=== PATIENT | male | born 1980 | race Caucasian/White ===

== ENCOUNTER 2017-11-05 08:46 | Day surgery (SDC) | payer BC, OTHER ==
[2017-10-29 18:13] VITALS: BMI 33.6
[~2017-11-05 08:46] MED LIST: BUPIVACAINE HCL/PF 0.25% (2.5MG/ML) 10 ML VIAL IJ ONE
[2017-11-05] MEDS ORDERED: BUPIVACAINE HCL/PF 2.5 MG/ML - 30 ML VIAL IJ ONE (10:07)
[2017-11-05] MEDS ORDERED: LIDOCAINE HCL/PF 2% SDV 5ML VIAL ONE (10:08)
[2017-11-05] MEDS ORDERED: SUCCINYLCHOLINE CHLORIDE 200 MG/10 ML VIAL ONE (10:08)
[2017-11-05] MEDS ORDERED: PROPOFOL 20 ML ONE (10:08)
[2017-11-05] MEDS ORDERED: BUPIVACAINE HCL/PF 0.25% (2.5MG/ML) 10 ML VIAL IJ ONE (11:58)
[2017-11-05] MEDS ORDERED: ONDANSETRON 4 MG/2 ML VIAL ONE (12:08)
[2017-11-05 13:21] VITALS: TEMP 97.7
[2017-11-05 13:55] VITALS: BP 118/79; PULSE 77
--- NOTE | 2017-11-06 07:14 | OP ---
DATE OF OPERATION: 11/05/2017 SITE: [facility]. SURGEON: Linden Andrews MD ASSISSTANT: BALDO Do PREOPERATIVE DIAGNOSIS: 1. Left knee medial and lateral meniscal tears. 2. Left knee cartilage injury. 3. Left knee synovitis. POSTOPERATIVE DIAGNOSIS: 1. Left knee medial and lateral meniscal tears. 2. Left knee cartilage injury. 3. Left knee synovitis. PROCEDURE: 1. Left knee arthroscopy with partial meniscectomies of medial and lateral meniscus. CPT code 86144. 2. Left knee arthroscopy with chondroplasty and abrasion-plasty. CPT code 2979, 3. Left knee arthroscopy with synovectomy including removal of medial plica. CPT code 2975. FINDINGS: 1. Medial meniscus body and horn tear. 2. Lateral meniscus posterior horn tear. 3. Synovitis, patellofemoral and medial lateral notch area. 4. Large medial plica with adhesions to medial patellofemoral trochlea. 5. Antegrade 1-2 injury, medial tibial plateau. 6. ACL and PCL intact. 7. Minimal cartilage changes, lateral joint line. 8. Minor grade 2 cartilage injury, central portion of patellofemoral trochlea and central patella, with area grade 4 changes at site of plica adhesion, anterior medial patellofemoral trochlea. DESCRIPTION OF PROCEDURE: Informed consent was obtained. The patient came to the operating room, where the lower extremity was prepped and draped in a sterile fashion. A tourniquet was placed on the upper thigh, but not inflated. Using standard arthroscopic technique, a lateral incision and portal was made to allow for introduction of the camera into the suprapatellar bursa. This was then taken to the medial joint line, where under direct visualization, a medial incision and portal was made. Excessive synovium noted in the medial, lateral and patellofemoral and notch area was removed by an upbiter, shaver and Bovie cautery. This was found to bring in inflammatory tissue into the joint surface, a source of pain and dysfunction. Probing of the medial and lateral meniscus found tears, as described in the findings. These were removed with the upbiter and shaver and taken back to a stable rim. Grade 2 to 3 degenerative changes were treated with a chondroplasty, removing all flaking surfaces with low-setting Bovie along the periphery to prevent further flaking. Grade 4 changes, as noted, were treated with an abrasoplasty, creating a bleeding surface at the bone/cartilage interface. Aggressive debridement with shaver/rafael created bleeding surface. Mirco fracture also done when indicated in findings. All areas of the knee were once again reexamined. The knee was then drained and a single suture was placed in all portals. A sterile dressing was placed and the patient was transferred to the recovery room without complication. LINDEN ANDREWS M.D. MARIA [id number]
--- NOTE | 2017-11-08 16:53 | PATH ---
Surgical Pathology Report Patient Name: STEPHANIE CORTES Med. Rec. #: [id number] /Age/Gender: 1980 (Age: 36) / M Account: [id number] Location: ON LICENSE OF [facility] Taken: 11/05/2017 Received: 11/05/2017 Reported: 11/08/2017 Physicians: Linden Buckley M.D. Specimen(s) Received LEFT KNEE SHAVINGS Clinical History Unilateral primary osteoarthritis left knee Final Diagnosis KNEE SHAVINGS, LEFT, ARTHROSCOPY: FRAGMENTS OF DENSE FIBROCONNECTIVE TISSUE, ADIPOSE TISSUE, AND REACTIVE SYNOVIUM. Electronically Signed Galina Rondon M.D. Gross Description Received in formalin, labeled "left knee shavings," is a 3.5 x 3.0 x 0.4 cm. aggregate of alston-yellow soft tissue fragments. A international account representative portion is submitted in one cassette. /11/05/2017 saudi11/05/2017
== END 2017-11-05 14:00 | disposition home or self-care (01) ==
LOC: FASU 08:46
PROVIDERS: ATTEND Orthopaedic Surgery
PROC: 0SBD4ZZ Excision of Left Knee Joint, Percutaneous Endoscopic Approach (ICD-10-PCS; 2017-11-05)
PROC: 0SBD4ZZ Excision of Left Knee Joint, Percutaneous Endoscopic Approach (ICD-10-PCS; 2017-11-05)
PROC: 0SBD4ZZ Excision of Left Knee Joint, Percutaneous Endoscopic Approach (ICD-10-PCS; principal; 2017-11-05 10:30)
DX: S83.242A Other tear of medial meniscus, current injury, left knee, initial encounter (principal); S83.282A Other tear of lateral meniscus, current injury, left knee, initial encounter; S83.8X2A Sprain of other specified parts of left knee, initial encounter; M65.862 Other synovitis and tenosynovitis, left lower leg; X58.XXXA Exposure to other specified factors, initial encounter; Y93.9 Activity, unspecified; Y92.9 Unspecified place or not applicable
CPT/HCPCS: 88304-TC; 94760